=== PATIENT | male | born 1965 | race Caucasian/White ===

== ENCOUNTER 2016-09-01 11:27 | Emergency (ER) | payer MEDICAID ==
[~2016-09-01] VITALS: Ht 175.3 cm; Wt 81.8 kg
[~2016-09-01 11:27] MED LIST: ATEN25 PO; GABA-533 PO; INSLAN SQ; INSU100V3 SQ; OMEP20 PO
[2016-09-01 11:47] LABS: GLUCOSE,POINT OF CARE 457 MG/DL (70-110)
[2016-09-01] MEDS ORDERED: SULFAMETHOX/TRIMETH DS 800-160 MG/TABLET PO ONE (12:15)
[2016-09-01] MEDS ORDERED: INSULIN REGULAR, HUMAN 100 UNITS/ML SQ ONE (12:15)
[2016-09-01] MEDS ORDERED: TraMADol HCL 50 MG TABLET PO ONE (12:15)
[2016-09-01 12:45] LABS: BASOPHILS # (AUTO) 0.03 K/uL (0.00-0.20); BASOPHILS % (AUTO) 0.6 % (0.0-2.0); EOSINOPHILS % (AUTO) 3.79 % (1.0-6.0); HEMATOCRIT 31.3 % (41-53); HEMOGLOBIN 10.6 g/dL (13.5-17.5); LYMPHOCYTES # (AUTO) 1.2 K/uL (1.0-4.8); LYMPHOCYTES % (AUTO) 23.2 % (22.0-44.0); MEAN CORPUSCULAR HEMOGLOBIN 27.5 pg (26.0-34.0); MEAN CORPUSCULAR VOLUME 81 fL (80-100); MONOCYTES # (AUTO) 0.7 K/uL (0.1-1.0); MONOCYTES % (AUTO) 13.6 % (2.0-9.0); NEUTROPHILS # (AUTO) 3.1 K/uL (1.8-7.7); NEUTROPHILS % (AUTO) 58.8 % (40.0-70.0); PLATELET COUNT (AUTO) 235 K/uL (150-450); RED BLOOD CELL COUNT(AUTO) 3.86 MIL/uL (4.50-5.90); RED CELL DISTRIBUTION WIDTH 15.7 % (11.5-14.5); WHITE BLOOD COUNT (AUTO) 5.3 K/uL (4.5-11.0)
[2016-09-01 13:08] LABS: ALANINE AMINOTRANSFERASE 23 U/L (12-78); ALBUMIN 3.3 g/dL (3.4-5.0); ANION GAP 14 mmol/L (8-16); ASPARTATE AMINOTRANSFERASE 21 U/L (15-37); BILIRUBIN,TOTAL 0.5 mg/dL (0.1-1.0); CALCIUM, TOTAL 8.2 mg/dL (8.8-10.5); CARBON DIOXIDE 22 mmol/L (22-29); CHLORIDE 91 mmol/L (98-107); CREATININE 0.95 mg/dL (0.60-1.30); GLOMERULAR FILTR. RATE CALC > 60 mL/min (>60); POTASSIUM 3.8 mmol/L (3.5-5.1); SODIUM SERUM 127 mmol/L (136-145); TOTAL PROTEIN, SERUM 6.6 g/dL (6.4-8.2); UREA NITROGEN, BLOOD 9 mg/dL (7-18)
[2016-09-01] MEDS ORDERED: SODIUM CHLORIDE 0.9% 1,000 ML IV ONE (13:15)
[2016-09-01 14:58] LABS: GLUCOSE,POINT OF CARE 261 MG/DL (70-110)
[2016-09-01 16:28] VITALS: BP 149/57
== END 2016-09-01 16:35 | disposition home or self-care (01) ==
LOC: EMS 11:28
DX: E11.65 Type 2 diabetes mellitus with hyperglycemia (principal); E78.00 Pure hypercholesterolemia, unspecified; I10 Essential (primary) hypertension; Z79.4 Long term (current) use of insulin
CPT/HCPCS: 36415; 80053; 82962; 85025; 96360; 96372; 99284; J1815; J7030

== ENCOUNTER 2016-12-16 13:46 | Emergency (ER) | payer MEDICAID ==
[~2016-12-16] VITALS: Ht 177.8 cm; Wt 81.5 kg
[~2016-12-16 13:46] MED LIST changes: -ATEN25 PO; +ATEN25TA PO
[2016-12-16 14:20] LABS: GLUCOSE COMMENT 1 Doctor Notified; GLUCOSE,POINT OF CARE 599 MG/DL (70-110)
[2016-12-16] MEDS ORDERED: SODIUM CHLORIDE 0.9% 1,000 ML IV ONE ×2 (15:15→16:45)
[2016-12-16 15:32] LABS: BASOPHILS % (AUTO) 0.5 % (0.0-2.0); EOSINOPHILS % (AUTO) 3.9 % (1.0-6.0); HEMATOCRIT 33.3 % (41-53); HEMOGLOBIN 11.4 g/dL (13.5-17.5); LYMPHOCYTES # (AUTO) 1.3 K/uL (1.0-4.8); MEAN CORPUSCULAR HEMOGLOBIN 26.9 pg (26.0-34.0); MEAN CORPUSCULAR HGB CONC 34.1 G/dL (31.0-37.0); MEAN CORPUSCULAR VOLUME 79 fL (80-100); MONOCYTES # (AUTO) 0.6 K/uL (0.1-1.0); MONOCYTES % (AUTO) 11.7 % (2.0-9.0); NEUTROPHILS # (AUTO) 2.9 K/uL (1.8-7.7); NEUTROPHILS % (AUTO) 57.9 % (40.0-70.0); PLATELET COUNT (AUTO) 268 K/uL (150-450); RED BLOOD CELL COUNT(AUTO) 4.22 MIL/uL (4.50-5.90); RED CELL DISTRIBUTION WIDTH 16.6 % (11.5-14.5); WHITE BLOOD COUNT (AUTO) 5.1 K/uL (4.5-11.0)
[2016-12-16 15:50] LABS: LACTIC ACID 1.9 mmol/L (0.4-2.0)
[2016-12-16 16:04] LABS: ALANINE AMINOTRANSFERASE 49 U/L (12-78); ALBUMIN 3.5 g/dL (3.4-5.0); ANION GAP 11 mmol/L (8-16); ASPARTATE AMINOTRANSFERASE 47 U/L (15-37); BILIRUBIN,TOTAL 0.4 mg/dL (0.1-1.0); CALCIUM, TOTAL 8.3 mg/dL (8.8-10.5); CARBON DIOXIDE 23 mmol/L (22-29); CHLORIDE 89 mmol/L (98-107); CREATININE 1.03 mg/dL (0.60-1.30); GLOMERULAR FILTR. RATE CALC > 60 mL/min (>60); POTASSIUM 4.3 mmol/L (3.5-5.1); TOTAL PROTEIN, SERUM 6.8 g/dL (6.4-8.2); UREA NITROGEN, BLOOD 8 mg/dL (7-18)
[2016-12-16 16:11] LABS: SODIUM SERUM 123 mmol/L (136-145)
[2016-12-16 16:29] LABS: OSMOLALITY 338 mOS/kg (270-310)
[2016-12-16] MEDS ORDERED: INSULIN GLARGINE,HUM.REC.ANLOG 100 UNITS/ML SQ ONE (16:45)
[2016-12-16] MEDS ORDERED: INSULIN REGULAR, HUMAN 100 UNITS/ML SQ ONE ×2 (16:45→17:45)
[2016-12-16 17:34] VITALS: BP 124/82
[2016-12-16 19:45] LABS: GLUCOSE COMMENT 1 Doctor Notified; GLUCOSE,POINT OF CARE 441 MG/DL (70-110)
[2016-12-16 19:49] LABS: GLUCOSE,POINT OF CARE 248 MG/DL (70-110)
== END 2016-12-16 18:13 | disposition home or self-care (01) ==
LOC: EMS 13:47
DX: E11.65 Type 2 diabetes mellitus with hyperglycemia (principal); E87.1 Hypo-osmolality and hyponatremia; E78.00 Pure hypercholesterolemia, unspecified; I10 Essential (primary) hypertension; Z79.4 Long term (current) use of insulin
CPT/HCPCS: 36415; 80053; 82962; 83605; 83735; 83930; 85025; 96360; 96372; 99284; G0480; J1815 ×2; J7030

== ENCOUNTER 2017-01-27 20:34 | Emergency (ER) | payer MEDICAID ==
[~2017-01-27] VITALS: Ht 175.3 cm; Wt 81.8 kg
[2017-01-27] MEDS ORDERED: INSU100C14 SQ (20:48)
[2017-01-27] MEDS ORDERED: claritin PO (20:48)
[2017-01-27] MEDS ORDERED: lisinopril PO (20:48)
[2017-01-27 21:44] LABS: BASOPHILS # (AUTO) 0.04 K/uL (0.00-0.20); BASOPHILS % (AUTO) 0.5 % (0.0-2.0); EOSINOPHILS # (AUTO) 0.36 K/uL (0.00-0.70); EOSINOPHILS % (AUTO) 4.38 % (1.0-6.0); HEMOGLOBIN 11.6 g/dL (13.5-17.5); LYMPHOCYTES # (AUTO) 1.9 K/uL (1.0-4.8); LYMPHOCYTES % (AUTO) 22.2 % (22.0-44.0); MEAN CORPUSCULAR HEMOGLOBIN 27.1 pg (26.0-34.0); MEAN CORPUSCULAR HGB CONC 33.1 G/dL (31.0-37.0); MEAN CORPUSCULAR VOLUME 82 fL (80-100); MONOCYTES # (AUTO) 0.9 K/uL (0.1-1.0); MONOCYTES % (AUTO) 11.3 % (2.0-9.0); NEUTROPHILS # (AUTO) 5.1 K/uL (1.8-7.7); NEUTROPHILS % (AUTO) 61.7 % (40.0-70.0); PLATELET COUNT (AUTO) 342 K/uL (150-450); RED BLOOD CELL COUNT(AUTO) 4.26 MIL/uL (4.50-5.90); RED CELL DISTRIBUTION WIDTH 16.6 % (11.5-14.5); WHITE BLOOD COUNT (AUTO) 8.3 K/uL (4.5-11.0)
[2017-01-27 21:59] LABS: ANION GAP 8 mmol/L (8-16); CALCIUM, TOTAL 8.7 mg/dL (8.8-10.5); CARBON DIOXIDE 29 mmol/L (22-29); CHLORIDE 91 mmol/L (98-107); CREATININE 0.89 mg/dL (0.60-1.30); GLOMERULAR FILTR. RATE CALC > 60 mL/min (>60); POTASSIUM 3.9 mmol/L (3.5-5.1); SODIUM SERUM 128 mmol/L (136-145); UREA NITROGEN, BLOOD 6 mg/dL (7-18)
[2017-01-27 22:06] LABS: ALANINE AMINOTRANSFERASE 53 U/L (12-78); ALBUMIN 3.1 g/dL (3.4-5.0); ASPARTATE AMINOTRANSFERASE 21 U/L (15-37); BILIRUBIN,TOTAL 0.3 mg/dL (0.1-1.0); TOTAL PROTEIN, SERUM 7.2 g/dL (6.4-8.2)
[2017-01-27] MEDS ORDERED: INSULIN REGULAR, HUMAN 100 UNITS/ML SQ ONE (22:30)
[2017-01-27 22:41] LABS: APPEARANCE,URINE CLEAR (CLEAR); GLUCOSE, URINE (UA) >=1000 mg/dL (NEGATIVE); KETONES,URINE NEGATIVE (NEGATIVE); LEUKOCYTE ESTERASE ,URINE NEGATIVE (NEGATIVE); OCCULT BLOOD,URINE TRACE (NEGATIVE); PH,URINE 6.5 (5.0-8.0); PROTEIN,URINE POS 1+ (NEGATIVE)
[2017-01-27 22:59] LABS: RBC,URINE 0-2 /HPF (0-2); WBC,URINE None Seen /HPF (0-5)
[2017-01-27 23:26] LABS: GLUCOSE,POINT OF CARE 373 MG/DL (70-110)
[2017-01-27 23:52] VITALS: BP 124/78
[2017-01-28 00:12] LABS: GLUCOSE COMMENT 1 Doctor Notified; GLUCOSE,POINT OF CARE 367 MG/DL (70-110)
== END 2017-01-28 00:15 | disposition home or self-care (01) ==
LOC: EMS 20:35
DX: E11.65 Type 2 diabetes mellitus with hyperglycemia (principal); J40 Bronchitis, not specified as acute or chronic; F10.129 Alcohol abuse with intoxication, unspecified; E78.00 Pure hypercholesterolemia, unspecified; I10 Essential (primary) hypertension; Z79.4 Long term (current) use of insulin; Y90.6 Blood alcohol level of 120-199 mg/100 ml
CPT/HCPCS: 36415; 71010; 80053; 80307; 81001; 82962; 85025; 96372; 99285; G0480; J1815

== ENCOUNTER 2017-01-28 01:39 | Emergency (ER) | payer MEDICAID ==
[~2017-01-28] VITALS: Ht 177.8 cm; Wt 81.8 kg
[~2017-01-28 01:39] MED LIST changes: +INSU100C14 SQ; -INSU100V3 SQ; +claritin PO; +lisinopril PO
[2017-01-28 02:13] VITALS: BP 134/80
[2017-01-28 02:27] LABS: GLUCOSE,POINT OF CARE 403 MG/DL (70-110)
== END 2017-01-28 02:33 | disposition home or self-care (01) ==
LOC: EMS 01:40
DX: F10.129 Alcohol abuse with intoxication, unspecified (principal); E78.00 Pure hypercholesterolemia, unspecified; I10 Essential (primary) hypertension; E11.65 Type 2 diabetes mellitus with hyperglycemia; Z76.0 Encounter for issue of repeat prescription; Z79.4 Long term (current) use of insulin
CPT/HCPCS: 82962; 99282

== ENCOUNTER 2019-02-26 18:42 | Emergency (ER) | payer MEDICAID ==
[~2019-02-26] VITALS: Ht 175.3 cm; Wt 80.9 kg
[2019-02-26] MEDS ORDERED: ATOR40TA28 PO (18:54)
[2019-02-26] MEDS ORDERED: INSLAN SQ (18:54)
[2019-02-26] MEDS ORDERED: GABA-531 PO (18:54)
[2019-02-26] MEDS ORDERED: LISI-662 PO (18:54)
[2019-02-26 20:27] LABS: GLUCOSE,POINT OF CARE 67 MG/DL (70-110)
[2019-02-26 21:04] LABS: GLUCOSE,POINT OF CARE 122 MG/DL (70-110)
[2019-02-26] MEDS: HYDROCODONE/ACETAMINOPHEN 5-325 MG TABLET PO ONE (21:25)
[2019-02-26 22:24] LABS: GLUCOSE,POINT OF CARE 282 MG/DL (70-110)
[2019-02-26 22:47] VITALS: BP 117/67
== END 2019-02-26 23:53 | disposition home or self-care (01) ==
LOC: EMS 20:35
DX: E11.649 Type 2 diabetes mellitus with hypoglycemia without coma (principal); Z79.4 Long term (current) use of insulin; E78.00 Pure hypercholesterolemia, unspecified; I10 Essential (primary) hypertension; Z79.899 Other long term (current) drug therapy; Z79.84 Long term (current) use of oral hypoglycemic drugs
CPT/HCPCS: 82948

== ENCOUNTER 2020-04-07 22:54 | Emergency (ER) | payer MEDICAID ==
[~2020-04-07] VITALS: Ht 175.3 cm; Wt 72.7 kg
[~2020-04-07 22:54] MED LIST changes: +ASPI-1111 PO; +ATEN-73 PO; -ATEN25TA PO; +ATOR40TA28 PO; +DOXY-354 PO; +GABA-1181 PO; -GABA-533 PO; +LEVO-72 PO; +LISI-894 PO; +LORA10TA7 PO; +LOSA25TA2 PO; +NIFE-40 PO; -claritin PO; -lisinopril PO
[2020-04-07 23:43] LABS: ANION GAP 14 mmol/L (8-16); BASOPHILS % (AUTO) 1.2 % (0.0-2.0); CARBON DIOXIDE 20 mmol/L (22-29); CHLORIDE 99 mmol/L (98-107); CREATININE 1.78 mg/dL (0.60-1.30); EOSINOPHILS % (AUTO) 9.2 % (1.0-6.0); GLUCOSE,RANDOM 106 mg/dL (70-110); HEMATOCRIT 26.8 % (41-53); HEMOGLOBIN 8.8 g/dL (13.5-17.5); LYMPHOCYTES # (AUTO) 2.1 K/uL (1.0-4.8); LYMPHOCYTES % (AUTO) 29.3 % (22.0-44.0); MEAN CORPUSCULAR HEMOGLOBIN 23.4 pg (26.0-34.0); MEAN CORPUSCULAR HGB CONC 32.8 G/dL (31.0-37.0); MEAN CORPUSCULAR VOLUME 71 fL (80-100); MONOCYTES # (AUTO) 0.8 K/uL (0.1-1.0); MONOCYTES % (AUTO) 11.4 % (2.0-9.0); NEUTROPHILS # (AUTO) 3.4 K/uL (1.8-7.7); NEUTROPHILS % (AUTO) 48.9 % (40.0-70.0); PLATELET COUNT (AUTO) 430 K/uL (150-450); POTASSIUM 4.1 mmol/L (3.5-5.1); RED BLOOD CELL COUNT(AUTO) 3.77 MIL/uL (4.50-5.90); RED CELL DISTRIBUTION WIDTH 18.6 % (11.5-14.5); SODIUM SERUM 133 mmol/L (136-145); UREA NITROGEN, BLOOD 33 mg/dL (7-18)
[2020-04-07 23:44] LABS: CALCIUM, TOTAL 8.9 mg/dL (8.8-10.5); GLOMERULAR FILTR. RATE CALC 40 mL/min (>60)
[2020-04-07 23:49] LABS: ALANINE AMINOTRANSFERASE 22 U/L (12-78); ALBUMIN 3.3 g/dL (3.4-5.0); ALKALINE PHOSPHATASE 92 U/L (46-116); ASPARTATE AMINOTRANSFERASE 17 U/L (15-37); BILIRUBIN,TOTAL 0.3 mg/dL (0.1-1.0)
[2020-04-07 23:50] LABS: ACETAMINOPHEN < 2 mcg/mL (10-30)
[2020-04-08 00:01] LABS: SALICYLATE 0.3 mg/dL (2.8-20.0)
[2020-04-08 02:40] LABS: GLUCOSE,POINT OF CARE 339 MG/DL (70-110)
[2020-04-08] MEDS ORDERED: SODIUM CHLORIDE 0.9% 1,000 ML IV ONE (03:00)
[2020-04-08 03:29] LABS: CREATINE KINASE, TOTAL ONLY 168 U/L (39-308)
[2020-04-08 05:33] VITALS: BP 138/88
== END 2020-04-08 06:16 | disposition home or self-care (01) ==
LOC: EMS 22:54
DX: E11.65 Type 2 diabetes mellitus with hyperglycemia (principal); R79.89 Other specified abnormal findings of blood chemistry; E78.00 Pure hypercholesterolemia, unspecified; I10 Essential (primary) hypertension; Z79.899 Other long term (current) drug therapy; Z79.4 Long term (current) use of insulin
CPT/HCPCS: 36415; 71045; 80053; 82550; 82962; 84484; 85025; 93005; 96360; 99285; G0480; G0481; J7030